=== PATIENT | male | born 2000 | race Caucasian/White ===

== ENCOUNTER 2021-12-10 15:45 | Emergency (ER) | payer OTHER ==
[~2021-12-10] VITALS: Ht 180.3 cm; Wt 63.5 kg
--- NOTE | 2021-12-10 16:09 | NUR ---
PT IS IN ROOM #1B. DR GOOD EVALUATED THE PT.
[2021-12-10] MEDS ORDERED: ONDA4TAB5 PO (16:24)
--- NOTE | 2021-12-10 16:38 | NUR ---
PT WAS D/C'd TO [facility]. D/C INSTRUCTIONS GIVEN TO THE PT BY DR GOOD.
[2021-12-10 16:39] VITALS: BP 128/81
== END 2021-12-10 16:40 | disposition home or self-care (01) ==
LOC: ER 15:55
DX: S06.0X0A Concussion without loss of consciousness, initial encounter (principal); S00.03XA Contusion of scalp, initial encounter; W01.0XXA Fall on same level from slipping, tripping and stumbling without subsequent striking against object, initial encounter; Y92.89 Other specified places as the place of occurrence of the external cause
CPT/HCPCS: A4663

== ENCOUNTER 2022-09-07 13:02 | Emergency (ER) | payer SELFPAY ==
[~2022-09-07] VITALS: Ht 180.3 cm; Wt 68.0 kg
[~2022-09-07 13:02] MED LIST: ONDA4TAB5 PO
--- NOTE | 2022-09-07 13:20 | NUR ---
Dr Roland at the bedside for MSE.
[2022-09-07 13:50] VITALS: BP 118/78
--- NOTE | 2022-09-07 13:50 | NUR ---
Patient discharged to home in stable condition. Written and verbal after care instructions given. Patient verbalizes understanding of instructions. Stressed follow up or return to ER for worsening s/s.
== END 2022-09-07 13:51 | disposition home or self-care (01) ==
LOC: ER 13:02
DX: S00.03XA Contusion of scalp, initial encounter (principal); W22.09XA Striking against other stationary object, initial encounter; Y92.89 Other specified places as the place of occurrence of the external cause
CPT/HCPCS: A4663